=== PATIENT | male | born 1960 | race Caucasian/White ===

== ENCOUNTER 2022-04-17 00:26 | Emergency (ER) | payer BC ==
[~2022-04-17] VITALS: Ht 170.2 cm; Wt 78.0 kg
--- NOTE | 2022-04-17 00:30 | NUR ---
Patient's at bedside
[2022-04-17] MEDS ORDERED: diphenhydrAMINE 50 MG/1 ML VIAL ONE (00:34)
[2022-04-17] MEDS ORDERED: LORAZEPAM 0.5 MG TABLET ONE (00:43)
[2022-04-17] MEDS ORDERED: LORAZEPAM 0.5 MG TABLET PO ONE (00:45)
[2022-04-17] MEDS ORDERED: HYDROMORPHONE 1 MG/1 ML DISP.SYRIN IV ONE (00:45)
[2022-04-17] MEDS ORDERED: diphenhydrAMINE 50 MG/1 ML VIAL IM ONE (00:45)
[2022-04-17] MEDS ORDERED: ASPI81TA31 PO (00:51)
[2022-04-17] MEDS ORDERED: DOCU100C36 PO (00:51)
[2022-04-17] MEDS ORDERED: NIFE30TA7 PO (00:51)
[2022-04-17] MEDS ORDERED: TRAM50TA PO (00:51)
[2022-04-17] MEDS ORDERED: HYDROMORPHONE 1 MG/1 ML DISP.SYRIN ONE (00:53)
[2022-04-17 00:56] LABS: HEMATOCRIT 32.4 % (36.7-47.1); MEAN CORPUSCULAR HEMOGLOBIN 28.7 uug (23.8-33.4); MEAN CORPUSCULAR VOLUME 82.9 fL (73.0-96.2); PLATELET COUNT (AUTO) 215 K/uL (152-348)
[2022-04-17 01:20] LABS: BILIRUBIN,DIRECT 0.1 mg/dL (0.0-0.2); BILIRUBIN,TOTAL 0.5 mg/dL (0.2-1.0); CREATININE 0.9 mg/dL (0.6-1.3); TOTAL PROTEIN, SERUM 7.5 g/dL (6.4-8.2)
[2022-04-17] MEDS ORDERED: IV NORMAL SALINE 1000 ML BAG IV ONE (02:00)
[2022-04-17] MEDS ORDERED: LORA-259 PO (02:09)
[2022-04-17 02:36] LABS: *BILIRUBIN,URIN NEGATIVE (NEGATIVE); *CLARITY,URINE CLEAR (CLEAR); *COLOR,URINE YELLOW (YELLOW); *KETONES,URINE NEGATIVE (NEGATIVE); *UROBILINOGEN,URINE 0.2 E.U./dl (NORMAL); LEUKOCYTE ESTERASE ,URINE NEGATIVE (NEGATIVE); NITRITE, URINE NEGATIVE (NEGATIVE); UGLUCOSE NEGATIVE (NEGATIVE)
[2022-04-17 02:38] LABS: *BLOOD, URINE TRACE (NEGATIVE)
[2022-04-17 02:50] LABS: RBC,URINE 0-3 /HPF (0-3)
--- NOTE | 2022-04-17 02:50 | NUR ---
Patient discharged to home in stable condition. Written and verbal after care instructions given. Patient verbalizes understanding of instructions. Stressed follow up or return to ER for worsening s/s. Patient is a/ox4, NAD noted. Patient is accompanied by his
[2022-04-17 02:51] LABS: BACTERIA,URINE NONE SEEN /HPF (NONE SEEN); SQUAMOUS EPITHELIAL CELL,UR FEW /HPF (NONE SEEN); WBC,URINE NONE SEEN /HPF (0-3)
[2022-04-17 03:17] VITALS: BP 137/73
== END 2022-04-17 02:50 | disposition home or self-care (01) ==
LOC: ER 00:27
DX: G25.71 Drug induced akathisia (principal); T40.425A Adverse effect of tramadol, initial encounter; Y92.019 Unspecified place in single-family (private) house as the place of occurrence of the external cause; F41.9 Anxiety disorder, unspecified; G89.18 Other acute postprocedural pain; M25.561 Pain in right knee; Z96.651 Presence of right artificial knee joint; Z79.82 Long term (current) use of aspirin
CPT/HCPCS: 99284; 96374; 96361; 80076; 80048; 81001; 82550; 85025; 36415; 96372; J1200; J1170; J7040; A4663